=== PATIENT | female | born 1985 | race Caucasian/White ===

== ENCOUNTER → 2017-09-09 15:54 | Outpatient (CLI) | payer OTHER, SELFPAY ==
[2017-09-09 17:29] LABS: Absolute Lymphocyte Count 1.61 X10^3/ul (0.83-4.51); Absolute Neutrophil Count 5.2 X10^3/uL (2.0-7.7); Basophil# 0.01 X10^3/uL; Basophil% 0.1 % (0-1); Eosinophil# 0.19 X10^3/uL; Eosinophils% 2.5 % (0-5); Hematocrit 38.3 % (37-47); Hemoglobin 12.7 g/dl (12.0-15.0); Lymphocyte # 1.61 X10^3/ul (4.0); Lymphocyte % 21.1 % (19-41); Mean Corp Hgb Conc 33.2 g/gl (32-36); Mean Corpuscular Hgb 27.3 pg (27.0-32.0); Mean Corpuscular Volume 82.2 fL (81-99); Monocyte# 0.57 X10^3/uL; Monocyte% 7.5 % (0-10); Neutrophil # 5.24 X10^3/uL (2.7-7.7); Neutrophil % 68.5 % (47-70); Platelet Count 210 K/mm3 (150-450); RBC Distribution Width CV 13.7 % (11.6-14.6); RBC Distribution Width SD 40.3 fl (35.1-43.9); Red Blood Count 4.66 M/mm3 (4.2-5.4); White Blood Count 7.6 K/mm3 (4.4-11.0)
[2017-09-09 17:44] LABS: POSITIVE COUNT NO; POSITIVE DIFFERENTIAL NO; POSITIVE MORPHOLOGY NO
[2017-09-09 19:01] LABS: HIV - WCH Non-Reactive (Nonreactive); Rubella IgG 46.6 IU/mL
[2017-09-11 11:19] LABS: HEPATITIS B SURFACE AG Negative (Negative)
[2017-09-13 03:10] LABS: Rapid Plasmin Reagin (RPR) NONREACTIVE (NONREACTIVE)
== END ==
PROVIDERS: Family Provider Family Medicine; PCP Family Medicine; Visit Provider Obstetrics & Gynecology
DX: Z34.81 Encounter for supervision of other normal pregnancy, first trimester (principal)
CPT/HCPCS: 85025; 86592; 86703; 86762; 86850; 86900; 87086; 87340

== ENCOUNTER → 2017-09-09 18:12 | Outpatient (CLI) | payer OTHER, SELFPAY ==
[2017-09-09 22:25] LABS: Chlamydia Trachomatis by PCR Negative (Negative); Neisserai gonorrhoeae by PCR Negative (Negative); Probe Check PASS; Sample Adequacy Control PASS; Specimen Processing Control PASS
== END ==
PROVIDERS: Family Provider Family Medicine; PCP Family Medicine; Visit Provider Obstetrics & Gynecology
DX: Z34.81 Encounter for supervision of other normal pregnancy, first trimester (principal)
CPT/HCPCS: 87086; 87491; 87591

== ENCOUNTER → 2017-12-02 08:05 | Outpatient (CLI) | payer OTHER, SELFPAY ==
--- NOTE | 2017-12-02 08:05 | DT_ITS ---
This patient was seen during an EMR downtime November 25, 2017 - December 02, 2017. This patient may have a combination of paper and electronic documentation or all paper documentation. All documentation is viewable within the e-chart portion of [employer] for each patient visit.
--- NOTE | 2017-12-02 08:12 | US_ITS ---
STUDY: SECOND AND THIRD TRIMESTER OBSTETRICAL ULTRASOUND REASON FOR EXAM: Female, 32 years old. , assessment LMP: July 18, 2017 TECHNIQUE: Transabdominal imaging of the pelvis was performed using real-time ultrasound. PRIOR ULTRASOUND: None. FINDINGS: There is a single intrauterine fetus. The fetus is in a variable presentation. There is demonstrated cardiac activity with a heart rate of 155 bpm. There is a normal amniotic fluid volume. The placenta is anterior in location and is not low lying. There are Grade 0 placental changes. The cervix measures 4.9 cm in length. The bilateral adnexal regions show no significant abnormalities. BIOMETRY: BPD: 4.83 cm: 20 weeks, 5 days HC: 17.41 cm: 20 weeks, 0 days AC: 14.68 cm: 20 weeks, 0 days FL: 3.02 cm: 19 weeks, 3 days CI: 83% FL/BPD: 63% FL/HC: FL/AC: 21% HC/AC: 1.19 age by current US: 20 weeks, 1 days. MORGAN by current US: April 20, 2018. Estimated weight: 310 grams, +/- 45 grams, 55 %. age by prior US: weeks, days. MORGAN by prior US: . Age by LMP: 19 weeks, 4 days. MORGAN by LMP: April 24, 2018. ANATOMY: Gender: Male Cranium: Normal lateral ventricles. Normal choroid plexus. Normal cerebellum. Normal cisterna magna. Normal face, nose and lips. Chest: Normal 4-chamber heart. Abdomen/Pelvis: Normal diaphragm. Normal stomach. Normal abdominal wall. Normal cord insertion. Normal 3 vessel cord. The renal pelves measure 3.8 mm and 3.2 mm. Normal bladder. Spine: Normal cervical spine. Normal thoracic spine. Normal lumbar spine. Extremities: Normal bilateral upper extremities. Normal bilateral lower extremities. US/OB Anatomy Scan IMPRESSION: There is a viable intrauterine with estimated gestational age of 20 weeks 1 day by the current ultrasound. Measurements are given above. The renal pelves are prominent but not hydronephrotic. These can be reassessed on a follow-up study. Electronically Signed: Dee Lobato MD at 21:40 EDT Tel Direct: [phone], Service support ,
== END ==
PROVIDERS: Family Provider Family Medicine; PCP Family Medicine; Visit Provider Obstetrics & Gynecology
DX: Z36.89 Encounter for other specified antenatal screening (principal)
CPT/HCPCS: 76805

== ENCOUNTER → 2018-01-17 09:03 | Outpatient (CLI) | payer OTHER, SELFPAY ==
--- NOTE | 2018-01-17 09:07 | US_ITS ---
STUDY: SECOND AND THIRD TRIMESTER OBSTETRICAL ULTRASOUND - LIMITED REASON FOR EXAM: Female, 32 years old. Follow-up anatomy. LMP: 07/18/2017 PRIOR ULTRASOUND: 12/02/2017 TECHNIQUE: Transabdominal ultrasound evaluation was performed. FINDINGS: There is a single intrauterine fetus. The fetus is in a cephalic presentation. There is demonstrated cardiac activity with a heart rate of 139 bpm. There is a normal amniotic fluid volume. The largest amniotic fluid pocket measures 7.8 x 5.2 cm. The placenta is anterior in location and is not low lying. There are Grade 0 placental changes. The cervix measures 3.3 cm in length. BIOMETRY: BPD: 6.88 cm: 27 weeks, 5 days HC: 25.35 cm: 27 weeks, 4 days AC: 23.16 cm: 27 weeks, 4 days FL: 4.80 cm: 26 weeks, 1 days Age by LMP: 26 weeks, 1 days. MORGAN by LMP: 04/24/2018. age by prior US: 26 weeks, 5 days. MORGAN by prior US: 04/20/2018. age by current US: 27 weeks, 2 days. MORGAN by current US: 04/16/2018. Estimated weight: 1017 grams, +/- 148 grams, 76 percentile. Both renal pelves remain dilated, right measures 4 mm, left 5 mm, both still within normal range, no hydronephrosis noted. US/OB Limited With Biometrics IMPRESSION: Single live intrauterine at 27 weeks, 2 days by ultrasound with MORGAN of 04/16/2018. Heart rate of 139 bpm. Subtle renal pelvis dilatation still noted, both measurements still within normal range. Normal growth noted since the previous study. Electronically Signed: Desmond Leija MD at 11:56 EDT , Service support ,
== END ==
PROVIDERS: Family Provider Family Medicine; PCP Family Medicine; Visit Provider Obstetrics & Gynecology
DX: O28.9 Unspecified abnormal findings on antenatal screening of mother (principal); Z3A.00 Weeks of gestation of pregnancy not specified
CPT/HCPCS: 76816

== ENCOUNTER → 2018-01-30 17:06 | Outpatient (CLI) | payer OTHER, SELFPAY ==
[2018-01-30 17:58] LABS: Absolute Lymphocyte Count 1.84 X10^3/ul (0.83-4.51); Absolute Neutrophil Count 6.7 X10^3/uL (2.0-7.7); Basophil# 0.02 X10^3/uL; Basophil% 0.2 % (0-1); Eosinophil# 0.35 X10^3/uL; Eosinophils% 3.6 % (0-5); Hematocrit 33.8 % (37-47); Hemoglobin 10.8 g/dl (12.0-15.0); Lymphocyte # 1.84 X10^3/ul (4.0); Mean Corpuscular Hgb 26.6 pg (27.0-32.0); Mean Corpuscular Volume 83.3 fL (81-99); Mean Platelet Vol. 11.3 fl (6.2-12.0); Monocyte# 0.67 X10^3/uL; Monocyte% 6.9 % (0-10); Neutrophil # 6.69 X10^3/uL (2.7-7.7); Neutrophil % 69.3 % (47-70); Platelet Count 170 K/mm3 (150-450); RBC Distribution Width CV 13.4 % (11.6-14.6); RBC Distribution Width SD 40.9 fl (35.1-43.9); Red Blood Count 4.06 M/mm3 (4.2-5.4); White Blood Count 9.7 K/mm3 (4.4-11.0)
[2018-01-30 18:03] LABS: POSITIVE COUNT NO; POSITIVE DIFFERENTIAL NO; POSITIVE MORPHOLOGY NO
[2018-01-30 18:38] LABS: Glucose Challenge Gest 1H 50g 125 mg/dL (70-140)
== END ==
PROVIDERS: Family Provider Family Medicine; PCP Family Medicine; Visit Provider Obstetrics & Gynecology
DX: Z34.81 Encounter for supervision of other normal pregnancy, first trimester (principal)
CPT/HCPCS: 36415; 82950; 85025

== ENCOUNTER → 2018-03-26 16:04 | Outpatient (CLI) | payer OTHER, SELFPAY ==
[2018-03-26 18:18] LABS: Group B Strep DNA By PCR Negative (Negative); Internal Control PASS; Probe Check PASS; Specimen Processing Control PASS
== END ==
PROVIDERS: Family Provider Family Medicine; PCP Family Medicine; Referring Provider Obstetrics & Gynecology; Visit Provider Obstetrics & Gynecology
DX: Z34.90 Encounter for supervision of normal pregnancy, unspecified, unspecified trimester (principal)
CPT/HCPCS: 87081; 87653

== ENCOUNTER → 2018-04-17 08:52 | Outpatient (CLI) | payer OTHER, SELFPAY ==
[2018-04-17 10:31] LABS: T4 Free Direct 0.97 ng/dL (0.76-1.46); Thyroid Stim Hormone (TSH) 1.98 uIU/mL (0.358-3.74)
== END ==
PROVIDERS: Referring Provider Obstetrics & Gynecology; Visit Provider Obstetrics & Gynecology
DX: E01.0 Iodine-deficiency related diffuse (endemic) goiter (principal)
CPT/HCPCS: 36415; 84439; 84443

== ENCOUNTER → 2018-04-24 14:14 | Outpatient (CLI) | payer OTHER, SELFPAY ==
--- NOTE | 2018-04-24 14:18 | US_ITS ---
STUDY: THYROID ULTRASOUND REASON FOR EXAM: Female, 32 years old. Follow-up nodules TECHNIQUE: Ultrasound evaluation of the thyroid was performed with real-time and static ambrose-scale imaging. COMPARISON: 02/21/2017. FINDINGS: RIGHT LOBE: The right lobe of the thyroid gland measures 5.1 x 2.0 x 1.8 cm. There is a homogeneous echotexture. 2 small nodules again seen, low echogenicity to cystic, and measuring 0.5 and 0.8 mm. LEFT LOBE: The left lobe of the thyroid gland measures 4.8 x 1.8 x 1.2 cm. There is a homogeneous echotexture. There are no demonstrated solid, cystic or complex lesions. ISTHMUS: The isthmus measures 2 mm . The regional lymph nodes are normal. US/Thyroid IMPRESSION: Small cystic subcentimeter nodules on the left which do not need further evaluation, and no other abnormalities found. Electronically Signed: Brandon Horne MD at 15:52 EDT , Service support ,
== END ==
PROVIDERS: Family Provider Family Medicine; PCP Family Medicine; Referring Provider Obstetrics & Gynecology; Visit Provider Obstetrics & Gynecology
DX: E01.0 Iodine-deficiency related diffuse (endemic) goiter (principal)
CPT/HCPCS: 76536

== ENCOUNTER 2018-04-30 07:00 | Inpatient (IN) | payer OTHER, SELFPAY ==
[2018-04-30] MEDS: Lactated Ringers 1,000 ML 50 ML IV ×3 (07:40→16:21)
[2018-04-30 07:45] VITALS: BMI 30.4
[2018-04-30 07:54] LABS: Hematocrit 32.3 % (37-47); Hemoglobin 9.9 g/dl (12.0-15.0); Mean Corp Hgb Conc 30.7 g/gl (32-36); Mean Corpuscular Hgb 23.7 pg (27.0-32.0); Mean Corpuscular Volume 77.3 fL (81-99); Mean Platelet Vol. 11.5 fl (6.2-12.0); Platelet Count 203 K/mm3 (150-450); RBC Distribution Width CV 14.3 % (11.6-14.6); RBC Distribution Width SD 40.5 fl (35.1-43.9); Red Blood Count 4.18 M/mm3 (4.2-5.4); White Blood Count 10.6 K/mm3 (4.4-11.0)
[2018-04-30 08:01] LABS: Scan Indicated on CBC? Y/N NO
[2018-04-30] MEDS: Oxytocin 30 units/NS 500 ml 30 UNITS/500 ML IV.SOLN IV (08:31)
[2018-04-30] MEDS: fentaNYL-bupivacaine (epidural) 100 ML BAG EPIDURAL (13:45)
[2018-04-30] MEDS: Oxytocin 30 units/NS 500 ml 30 UNITS/500 ML IV.SOLN 334 UNITS IV (17:10)
--- NOTE | 2018-04-30 17:33 | PCM.HP.OB ---
- Problem List (1) Normal in multigravida in third trimester Status: Acute Comment: PRR MORGAN 04/24/18 boy Luis F Hilario shyam Robert (2) Ventriculomegaly of brain on ultrasound Status: Acute Comment: Weekly BPP following with MFM. plan neurology after . send placenta at delivery. (3) Status: Acute Qualifiers: Comment: nipt normal. NTD screening declined. anatomy scan reviewed. Antepartum testing- no operative vaginal delivery. (4) Abnormal findings on screening Status: Acute Comment: upper limits of normal kidney size, repeat normal with MFM, but ventriculomegaly present (5) Normal in multigravida in first trimester Status: Acute History Date of Admission: 04/30/18 Final MORGAN: 04/24/18 Final MORGAN Source: US <20 weeks Gestational age: 40 Weeks and 6 Days History of this : This is a 32 year-old, at 40 weeks gestational age presents IOL postdates. she denies any vb lof admits good fm has had a complicated by ventriculomegaly and pyelectasis. She previously had polyhydramnios that has resolved the last 2 weeks. She is been followed with [facility] in addition to routine care. Medical History: Medical History (Last Reviewed 04/29/18 @ 16:28 by Belkis Mendez) H/O wisdom tooth extraction K08.409 Surgical History: Surgical History (Last Reviewed 04/29/18 @ 16:28 by Belkis Mendez) H/O dilation and curettage Z98.890 Allergies No Known Allergies Allergy (Verified 04/29/18 16:29) Home Medications: Home Medications Vits [Prenatabs FA ] 1 tab PO DAILY 01/03/14 Smoking Status: Never smoker Alcohol: None Number of Fetus(es): 1 Heart Tracins moderate variability reactive no decelerations category 1 tracing TOCO Analysis: No regular contractions History Past Pregnancies: Past Pregnancies 2 previous term uncomplicated vaginal deliveries weighing 8 pounds Labs: Mom's Labs & Results 04/30/18 04/30/18 07:40 07:40 WBC 10.6 RBC 4.18 L Hgb 9.9 L Hct 32.3 L MCV 77.3 L MCH 23.7 L MCHC 30.7 L RDW 14.3 RDW Differential 40.5 Plt Count 203 MPV 11.5 Blood Type A POSITIVE Antibody Screen NEGATIVE Course Did the patient receive Yes care? Labs Blood Type: A RH: POSITIVE RPR/VDRL/Syphilis Nonreactive Rubella status Immune HbSAg Negative Date Done: 09/09/17 Chlamydia Negative Gonorrhea Negative HIV/AIDS Non-Reactive Group B Strep: Negative Current Obstetrical History Gestational Diabetes No Incompetent Cervix No Infertility No IUGR No Macrosomia No Hypertension/Pre-eclampsia No Placenta Previa/Abruption No PTL/PROM No Uterine anomaly No Oligohydramnios No Polyhydramnios No Multiple gestation No Past Medical History Asthma No Diabetes No Hypertension No Heart disease No Mitral valve prolapse No Neurologic/Seizure disorder/ No Migraines Kidney disease No Liver disease No Varicosities No Clotting disorders/Hx of DVT No Thyroid Dysfunction No Other medical diseases No Psychiatric disorders No Major trauma No Abnormal PAP smear No Sleep apnea No Mammogram in the last 2 years No Social History Marital Status: Alleged father ROBERT Hx Smoking No Smoking Status Never smoker How long have you used NA substances (years)? Expected Infant Delivery Method: Spontaneous Vaginal Review of Systems Constitutional: Denies: Fever, Malaise Eyes: Denies: Blurred vision, Vision Change HEENT: Denies: Head Aches, Visual Changes Cardiovascular: Denies: Chest Pain, Palpitations Respiratory: Denies: Cough, Shortness of Breath, Wheezing Gastrointestinal: Denies: Abdominal Pain, Diarrhea, Nausea, Vomiting Genitourinary: Denies: Dysuria, Hematuria Musculoskeletal: Denies: Joint Pain, Muscle pain Skin: Denies: Lesions, Rash Neurological: Denies: Blurred vision, Focal weakness, Headaches Psychiatric: Denies: Anxiety, Depression Endocrine: Denies: Heat/ Cold Intolerance Hematologic/ Lymphatic: Denies: Easy Bruising, Easy Bleeding Physical Exam General: Alert, Cooperative, No apparent distress HEENT: Atraumatic, Normocephalic. Negative for: Thyromegaly, Lymphadenopathy Cardiovascular: Regular rate Lungs: Normal air movement Abdomen: Soft, Non Tender, Gravid Neurological: Deep Tendon Reflexes 2+/4 and Symmetrical, Neuro grossly intact. 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 Negative for: Vulvar lesions Estimated gestational size: Appropriate for gestational size Presentation: Cephalic Cervix Dilation (cm): 3 Assessment/Plan All Active Problems (Last Reviewed 04/29/18 @ 16:28 by Belkis Mendez) Normal in multigravida in third trimester (Acute) Ventriculomegaly of brain on ultrasound (Acute) (Acute) Abnormal findings on screening (Acute) Normal in multigravida in first trimester (Acute) Ectopic (Resolved) This is a 32 year-old, at 40w 6dweeks gestational age presents for IOL postdates Patient presents IOL, plan expectant management for , pitocin/AROM . Pain management: plans epidural GBS neg Management of any complications: ventriculomegaly I have reviewed the [facility] and made any clinically relevant updates.
--- NOTE | 2018-04-30 17:37 | HP.PCM_ITS ---
- Problem List (1) Normal in multigravida in third trimester Status: Acute Comment: PRR MORGAN 04/24/18 boy Luis F Hilario shyam Robert (2) Ventriculomegaly of brain on ultrasound Status: Acute Comment: Weekly BPP following with MFM. plan neurology after . send placenta at delivery. (3) Status: Acute Qualifiers: Comment: nipt normal. NTD screening declined. anatomy scan reviewed. Antepartum testing- no operative vaginal delivery. (4) Abnormal findings on screening Status: Acute Comment: upper limits of normal kidney size, repeat normal with MFM, but ventriculomegaly present (5) Normal in multigravida in first trimester Status: Acute History Date of Admission: 04/30/18 Final MORGAN: 04/24/18 Final MORGAN Source: US <20 weeks Gestational age: 40 Weeks and 6 Days History of this : This is a 32 year-old, at 40 weeks gestational age presents IOL postdates. she denies any vb lof admits good fm has had a complicated by ventriculomegaly and pyelectasis. She previously had polyhydramnios that has resolved the last 2 weeks. She is been followed with [facility] in addition to routine care. Medical History: Medical History (Last Reviewed 04/29/18 @ 16:28 by Belkis Mendez) H/O wisdom tooth extraction K08.409 Surgical History: Surgical History (Last Reviewed 04/29/18 @ 16:28 by Belkis Mendez) H/O dilation and curettage Z98.890 Allergies No Known Allergies Allergy (Verified 04/29/18 16:29) Home Medications: Home Medications Vits [Prenatabs FA ] 1 tab PO DAILY 01/03/14 Smoking Status: Never smoker Alcohol: None Number of Fetus(es): 1 Heart Tracins moderate variability reactive no decelerations category 1 tracing TOCO Analysis: No regular contractions History Past Pregnancies: Past Pregnancies 2 previous term uncomplicated vaginal deliveries weighing 8 pounds Labs: Mom's Labs & Results 04/30/18 04/30/18 07:40 07:40 WBC 10.6 RBC 4.18 L Hgb 9.9 L Hct 32.3 L MCV 77.3 L MCH 23.7 L MCHC 30.7 L RDW 14.3 RDW Differential 40.5 Plt Count 203 MPV 11.5 Blood Type A POSITIVE Antibody Screen NEGATIVE Course Did the patient receive Yes care? Labs Blood Type: A RH: POSITIVE RPR/VDRL/Syphilis Nonreactive Rubella status Immune HbSAg Negative Date Done: 09/09/17 Chlamydia Negative Gonorrhea Negative HIV/AIDS Non-Reactive Group B Strep: Negative Current Obstetrical History Gestational Diabetes No Incompetent Cervix No Infertility No IUGR No Macrosomia No Hypertension/Pre-eclampsia No Placenta Previa/Abruption No PTL/PROM No Uterine anomaly No Oligohydramnios No Polyhydramnios No Multiple gestation No Past Medical History Asthma No Diabetes No Hypertension No Heart disease No Mitral valve prolapse No Neurologic/Seizure disorder/ No Migraines Kidney disease No Liver disease No Varicosities No Clotting disorders/Hx of DVT No Thyroid Dysfunction No Other medical diseases No Psychiatric disorders No Major trauma No Abnormal PAP smear No Sleep apnea No Mammogram in the last 2 years No Social History Marital Status: Alleged father ROBERT Hx Smoking No Smoking Status Never smoker How long have you used NA substances (years)? Expected Infant Delivery Method: Spontaneous Vaginal Review of Systems Constitutional: Denies: Fever, Malaise Eyes: Denies: Blurred vision, Vision Change HEENT: Denies: Head Aches, Visual Changes Cardiovascular: Denies: Chest Pain, Palpitations Respiratory: Denies: Cough, Shortness of Breath, Wheezing Gastrointestinal: Denies: Abdominal Pain, Diarrhea, Nausea, Vomiting Genitourinary: Denies: Dysuria, Hematuria Musculoskeletal: Denies: Joint Pain, Muscle pain Skin: Denies: Lesions, Rash Neurological: Denies: Blurred vision, Focal weakness, Headaches Psychiatric: Denies: Anxiety, Depression Endocrine: Denies: Heat/ Cold Intolerance Hematologic/ Lymphatic: Denies: Easy Bruising, Easy Bleeding Physical Exam General: Alert, Cooperative, No apparent distress HEENT: Atraumatic, Normocephalic. Negative for: Thyromegaly, Lymphadenopathy Cardiovascular: Regular rate Lungs: Normal air movement Abdomen: Soft, Non Tender, Gravid Neurological: Deep Tendon Reflexes 2+/4 and Symmetrical, Neuro grossly intact. 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 Negative for: Vulvar lesions Estimated gestational size: Appropriate for gestational size Presentation: Cephalic Cervix Dilation (cm): 3 Assessment/Plan All Active Problems (Last Reviewed 04/29/18 @ 16:28 by Belkis Mendez) Normal in multigravida in third trimester (Acute) Ventriculomegaly of brain on ultrasound (Acute) (Acute) Abnormal findings on screening (Acute) Normal in multigravida in first trimester (Acute) Ectopic (Resolved) This is a 32 year-old, at 40w 6dweeks gestational age presents for IOL postdates Patient presents IOL, plan expectant management for , pitocin/AROM . Pain management: plans epidural GBS neg Management of any complications: ventriculomegaly I have reviewed the [facility] and made any clinically relevant updates.
--- NOTE | 2018-04-30 17:39 | PCM.OB.VAG ---
- Problem List (1) Normal in multigravida in third trimester Status: Acute Comment: PRR MORGAN 04/24/18 boy Luis F Hilario shyam Robert (2) Ventriculomegaly of brain on ultrasound Status: Acute Comment: Weekly BPP following with MFM. plan neurology after . send placenta at delivery. (3) Status: Acute Qualifiers: Comment: nipt normal. NTD screening declined. anatomy scan reviewed. Antepartum testing- no operative vaginal delivery. (4) Abnormal findings on screening Status: Acute Comment: upper limits of normal kidney size, repeat normal with MFM, but ventriculomegaly present (5) Normal in multigravida in first trimester Status: Acute Vaginal Delivery Maternal Presentation: Medically Indicated Induction 32-year-old at 40 weeks 6 days presents for induction of labor secondary to postdates Method of Induction: Pitocin Medical Reason for Induction: Post term Amniotic Membrane Rupture Type: Artificial Amniotic Fluid Description: Clear Final MORGAN: 04/24/18 Gestational age: 40 Weeks and 6 Days Date of Procedure: 04/30/18 Pre-Operative Diagnosis: Induction of labor postdates Post-Operative Diagnosis: Same Surgery/ Procedure Performed: Spontaneous Vaginal Delivery Type of Anesthesia: Epidural Description of Procedure: Patient began pushing and delivered the head in the ASIM presentation. The head was delivered atraumatically . The anterior and posterior shoulders delivered without complication followed by the rest of the and the was placed on the maternal abdomen. Delayed cord clamping was employed for approximately 60 seconds. Cord was clamped and cut and gentle traction was applied to the cord and the placenta delivered spontaneously immediately following it was noted to be intact with three-vessel cord. The perineum and vagina were inspected and noted to have a small perineal second degree laceration was repaired in the usual fashion with 3-0 Vicryl repeat. EBL was 100 cc. Patient and infant tolerated delivery well. Presentation: ASIM Placental Delivery Description: Spontaneous Placenta Disposition: [facility] Cord Vessel Description: 3 Vessels Cord Entanglement: None Estimated Blood Loss: 100 Infant A gender: Male Episiotomy Description: None Laceration: Perineal Extension/lac, 2nd degree Medications given after delivery: IV Pitocin
[2018-04-30] MEDS: Oxytocin 30 units/NS 500 ml 30 UNITS/500 ML IV.SOLN 167 UNITS IV (17:40)
[2018-04-30 19:51] VITALS: BP 119/77; PULSE 101; RESP 16; TEMP 37.5
[2018-04-30] MEDS: Naproxen 250 MG Tablet PO (21:03)
[2018-05-01 00:15] VITALS: BP 97/59; PULSE 71; RESP 16; TEMP 37
[2018-05-01 04:00] VITALS: BP 102/63; PULSE 78; RESP 18; TEMP 36.5
[2018-05-01] MEDS: Naproxen 250 MG Tablet PO ×2 (06:54→15:16)
--- NOTE | 2018-05-01 06:58 | PCM.PN.OB ---
Subjective: DOING WELL NO COMPLAINTS - Physical Exam General: Alert, Oriented x3 Vital Signs Temp Pulse Resp BP 97.7 F L 78 18 102/63 05/01/18 04:00 05/01/18 04:00 05/01/18 04:00 05/01/18 04:00 Oxygen Delivery Method Room Air Weight: 171 lb 15.369 oz Body Mass Index (BMI) 30.4 Intake and Output for Last 24 Hours 04/29/18 04/30/18 05/01/18 23:59 23:59 23:59 Intake Total 2766 / 2766 Output Total 900 / 900 300 / 300 Balance 1866 / 1866 -300 / -300 Laboratory Tests Past 24 Hrs 04/30/18 04/30/18 07:40 07:40 WBC 10.6 RBC 4.18 L Hgb 9.9 L Hct 32.3 L MCV 77.3 L MCH 23.7 L MCHC 30.7 L RDW 14.3 RDW Differential 40.5 Plt Count 203 MPV 11.5 Blood Type A POSITIVE Antibody Screen NEGATIVE Medical Necessity - Tobacco Use Smoking Status: Never smoker Assessment/Plan All Active Problems (Last Reviewed 04/29/18 @ 16:28 by Belkis Mendez) Normal in multigravida in third trimester (Acute) Ventriculomegaly of brain on ultrasound (Acute) (Acute) Abnormal findings on screening (Acute) Normal in multigravida in first trimester (Acute) Ectopic (Resolved) s/p PPD # 1 1. routine post delivery care 2. breast feeding- support given 3. rh positive 4. rubella immune
--- NOTE | 2018-05-01 06:59 | PCM.DCVAG ---
Discharge Diet: No Restrictions Discharge Activity: Return to Normal Activity, May not drive while taking narcotic pain medications., May Shower May resume sexual activity in: 4-6 weeks Call your doctor if your incision/area has: Continuous Slow Oozing, Sudden Increased Bleeding, Increased Pain/ Swelling, Increased Redness, Foul Smelling Discharge Additional Instructions: If you experience any of the following, contact your healthcare provider. Bleeding that soaks a pad every hour for 2 hours Fever 100.4 or higher Unrelieved incision or abdominal pain Swelling, redness, discharge or bleeding from your incision or episiotomy site Your incision begins to separate Problems urinating (including inability to urinate or burning while urinating). Visual changes Severe headache Flu-like symptoms Pain or redness in one of both of your breasts Pain, warmth, tenderness or swelling in your legs, especially the calf area Frequent nausea and vomiting Symptoms of depression or anxiety If you experience any of the following, call 911 or go to the nearest Emergency Room. Chest pain Problems breathing Seizure activity Partial or complete paralysis of a body part, slurred speech, weakness or drooping of the face, or a sudden inability to walk or hold your balance Allergies/Adverse Reactions: Allergies No Known Allergies Allergy (Verified 04/29/18 16:29) Medications to take at Discharge Vits [Prenatabs FA ] 1 tab PO DAILY 01/03/14 Please Follow Up With: Breanne Jones MD - [phone] When: Call to make an appointment with your doctor in 6 weeks. If you had elevated Blood pressure or 4th degree laceration you will need to be seen in 2 weeks. Primary Care Physician: Delio Allen MD [Primary Care Provider] - Test Results: Test results from this visit will be discussed in further detail at your follow-up appointment, if applicable.
--- NOTE | 2018-05-01 07:00 | DCINST_ITS ---
Discharge Diet: No Restrictions Discharge Activity: Return to Normal Activity, May not drive while taking narcotic pain medications., May Shower May resume sexual activity in: 4-6 weeks Call your doctor if your incision/area has: Continuous Slow Oozing, Sudden Increased Bleeding, Increased Pain/ Swelling, Increased Redness, Foul Smelling Discharge Additional Instructions: If you experience any of the following, contact your healthcare provider. * Bleeding that soaks a pad every hour for 2 hours * Fever 100.4 or higher * Unrelieved incision or abdominal pain * Swelling, redness, discharge or bleeding from your incision or episiotomy site * Your incision begins to separate * Problems urinating (including inability to urinate or burning while urinating). * Visual changes * Severe headache * Flu-like symptoms * Pain or redness in one of both of your breasts * Pain, warmth, tenderness or swelling in your legs, especially the calf area * Frequent nausea and vomiting * Symptoms of depression or anxiety If you experience any of the following, call 911 or go to the nearest Emergency Room. * Chest pain * Problems breathing * Seizure activity * Partial or complete paralysis of a body part, slurred speech, weakness or drooping of the face, or a sudden inability to walk or hold your balance Allergies/Adverse Reactions: Allergies No Known Allergies Allergy (Verified 04/29/18 16:29) Medications to take at Discharge Vits [Prenatabs FA ] 1 tab PO DAILY 01/03/14 Please Follow Up With: Breanne Jones MD - [phone] When: Call to make an appointment with your doctor in 6 weeks. If you had elevated Blood pressure or 4th degree laceration you will need to be seen in 2 weeks. Primary Care Physician: Delio Allen MD [Primary Care Provider] - Test Results: Test results from this visit will be discussed in further detail at your follow- up appointment, if applicable.
[2018-05-01 09:21] VITALS: BP 111/85; PULSE 93; RESP 16; TEMP 36.8
[2018-05-01 12:19] VITALS: BP 107/76; PULSE 97; RESP 16; TEMP 36.6
[2018-05-01 16:00] VITALS: BP 106/71; PULSE 88; RESP 18; TEMP 37
--- NOTE | 2018-05-06 19:24 | NURSING ---
follow up call complete and denies needs, questions, or problems . satisfied with her care
== END 2018-05-01 19:30 | disposition home or self-care (01) | DRG 807 ==
PROVIDERS: Admitting Provider Obstetrics & Gynecology; Family Provider Family Medicine; PCP Family Medicine; Referring Provider Obstetrics & Gynecology; Visit Provider Obstetrics & Gynecology
DX: O48.0 Post-term pregnancy (principal); Z37.0 Single live birth; O70.1 Second degree perineal laceration during delivery; Z3A.40 40 weeks gestation of pregnancy
CPT/HCPCS: 59025; 59050; 85027; 86850; 86900; 88233; 88262; 88291; 88307; 88381; 99218; J7120; A4216; G0378

== ENCOUNTER → 2021-01-31 14:03 | Outpatient (CLI) | payer OTHER, SELFPAY ==
[2021-01-31 13:28] VITALS: BMI 30.4
[2021-02-03 22:13] LABS: HPV APTIMA, High Risk Negative (Negative)
== END ==
PROVIDERS: PCP Family Medicine; Visit Provider Nurse Practitioner Women's Health
DX: Z12.4 Encounter for screening for malignant neoplasm of cervix (principal)
CPT/HCPCS: 87624; 88175; G0145

== ENCOUNTER 2021-05-07 15:36 | Emergency (ER) | payer OTHER, SELFPAY ==
[2021-05-07 15:37] VITALS: BP 118/93; PULSE 107; RESP 22; TEMP 36.3; O2SAT 100; BMI 25.5
--- NOTE | 2021-05-07 15:47 | CT_ITS ---
STUDY: CT BRAIN WITHOUT CONTRAST REASON FOR EXAM: Female, 35 years old. seizure RADIATION DOSAGE (If Supplied By Facility): CTDIvol = ( 44.99 ) mGy, DLP = ( 745.49 ) mGycm TECHNIQUE: Transaxial CT imaging of the brain was performed without administration of intravenous contrast material. Individualized dose optimization techniques were used for this CT. COMPARISON: No relevant priors. FINDINGS: There is no intra-/extra-axial fluid collection, mass effect, or midline shift. The ambrose/white matter junction is preserved. The basal cisterns are patent. Visualized paranasal sinuses and mastoid air cells are clear. The calvarium is intact. CT/Brain/Head without Contrast IMPRESSION: No acute intracranial finding. MRI may be obtained if clinically indicated. Electronically Signed: Aung Peterson MD at 16:46 EST Tel , Service support ,
[2021-05-07 15:55] LABS: Absolute Lymphocyte Count 1.32 X10^3/uL (0.83-4.51); Absolute Neutrophil Count 7.4 X10^3/uL (2.0-7.7); Basophil# 0.03 X10^3/uL; Basophil% 0.3 % (0-1); Eosinophil# 0.04 X10^3/uL; Eosinophils% 0.4 % (0-5); Hematocrit 39.6 % (37-47); Hemoglobin 12.9 g/dL (12.0-15.0); Lymphocyte # 1.32 X10^3/ul (0.83-4.51); Lymphocyte % 14.3 % (19-41); Mean Corp Hgb Conc 32.6 g/dL (32-36); Mean Corpuscular Hgb 26.6 pg (27.0-32.0); Mean Corpuscular Volume 81.6 fL (81-99); Monocyte# 0.39 X10^3/uL; Monocyte% 4.2 % (0-10); NRBC Flagged by Analyzer 0 % (0-5); Neutrophil # 7.37 X10^3/uL (2.7-7.7); Neutrophil % 80.1 % (47-70); Platelet Count 274 K/mm3 (150-450); RBC Distribution Width CV 12.5 % (11.6-14.6); RBC Distribution Width SD 36.8 fl (35.1-43.9); Red Blood Count 4.85 M/mm3 (4.2-5.4); White Blood Count 9.2 K/mm3 (4.4-11.0)
[2021-05-07] MEDS: Ondansetron 4 MG/2 ML Vial IV ×2 (15:58→16:49)
--- NOTE | 2021-05-07 16:00 | EKG12_ITS ---
Test Reason : SYNCOPE Blood Pressure : / mmHG Vent. Rate : 105 BPM Atrial Rate : 105 BPM P-R Int : 138 ms QRS Dur : 092 ms QT Int : 362 ms P-R-T Axes : 073 068 -88 degrees QTc Int : [address] & T wave abnormality, consider anterolateral ischemia Abnormal ECG Confirmed by SILVIO HILARIO, NORBERT ([id number]), online editor JOSEF PORTER ([id number]) on 05/08/2021 11:07:05 AM Referred By: DAYLIN Confirmed By:NORBERT ANGUIANO MD
[2021-05-07 16:04] LABS: Anion Gap 8 (5-15); BUN 15 mg/dL (7-18); BUN/Creat Ratio 19.5 RATIO (10-20); Chloride 106 mmol/L (98-107); Creatinine, Serum 0.77 mg/dL (0.55-1.02); EST Glomerular Filtration Rate 91 mL/min (>60); Est Glom Filt Rate - Afr Amer 111 mL/min (>60); Estimated Creatinine Clearance 85.96 ml/min; Glucose 126 mg/dL (74-106); Potassium 3.2 mmol/L (3.5-5.1); Sodium Level 138 mmol/L (136-145)
--- NOTE | 2021-05-07 16:07 | EDS_ITS ---
HPI History of Present Illness Chief Complaint: Seizure Detail of Chief Complaint: Nausea and vomiting with myoclonic jerks Informant: patient and spouse/S.O. Onset/Context/Timing Onset: Today Context: Sudden Onset Timing: Intermittent Current Severity: Mild Maximum Severity: Moderate Narrative Narrative: 35-year-old female no sniffing past medical or surgical history. Currently on no medication she was doing well earlier in the week she had what she thought was drwe-qjrc-hab-mouth disease from her kids. That is since resolved the fevers have resolved. Today she felt nauseated symptoms get nauseated she passed out after vomiting and then had either a seizure or myoclonic jerking. She has had this happen before. She is never been diagnosed with seizures. One of the times when she passed out today after throwing up she fell and hit her head. states he does not think she was completely unconscious. She did not bite her tongue. Prior similar symptoms: Yes Recent Illness/Hospitalization: No PFSH PFSH Medical History Seizure Home Medications multivitamin 1 tab PO DAILY 01/31/21 [History Last Taken Unknown] ondansetron 4 mg PO Q6H PRN #7 tab 05/07/21 [Rx Last Taken Unknown] Allergy/AdvReac Type Severity Reaction Status Date / Time No Known Allergies Allergy Verified 05/07/21 15:37 Surgical History H/O dilation and curettage H/O wisdom tooth extraction Social History Smoking Status: Never smoker alcohol intake: never substance use type: does not use caffeine: Yes what type of physical activity do you participate in: walking seatbelt use: always do you feel safe at home: Yes 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 Review of Systems ROS Unobtainable: Denies due to encephalopathy Constitutional Constitutional ED: Denies chills or fever(s) Eyes Eyes: Denies change in vision ENT ENT ED: Denies ear pain Cardiovascular Cardiovascular: Denies chest pain Respiratory/Chest Respiratory/Chest: Denies dyspnea Gastrointestinal Gastrointestinal: Reports nausea and vomiting; Denies abdominal pain Genitourinary Genitourinary ED: Denies dysuria Musculoskeletal Musculoskeletal: Denies myalgias Integumentary Denies rash Neurologic Neurologic: Denies headache(s) Psychiatric Psychiatric: Denies depression Endocrine Endocrinology: Denies polyuria Allergic/Immunologic Allergic/Immunologic ED: Denies urticaria EXAM Physical Exam Narrative Exam Narrative: 35-year-old female no acute distress vital signs stable afebrile . Does not look septic or toxic. HEENT exam unremarkable. Atraumatic. Pupils round reactive light. Tongue normal no trauma to the tongue. Moist use membranes. No signs of trauma to her head or scalp. Neck nontender no lymphadenopathy no meningismus. Lungs clear to auscultation. Heart regular rhythm rate about 100 no murmur. Chest wall nontender. Abdomen soft nontender. Moving all 4 extremities neurovascularly intact nontender no deformity back nontender. Skin normal. Neurologic exam normal. GCS of 15 Const Vital Signs: 05/07/21 15:37 05/07/21 16:39 05/07/21 16:40 Temperature 97.4 F L Temperature Source Oral Pulse Rate 107 H 64 Respiratory Rate 22 H 12 Blood Pressure 118/93 H 113/84 H Blood Pressure Mean 101 93 Pulse Ox 100 80 100 Oxygen Delivery Method Room Air Room Air Nasal Cannula Oxygen Flow Rate (L/min) 2 05/07/21 17:40 Temperature 97.4 F L Temperature Source Oral Pulse Rate 102 H Respiratory Rate 18 Blood Pressure 110/81 H Blood Pressure Mean 90 Pulse Ox 100 Oxygen Delivery Method Room Air Oxygen Flow Rate (L/min) Positive well nourished and well developed; Negative for obese, cachectic, contractures or unkempt General Appearance ED: well developed and NAD; Negative for unkempt, cachectic, contractures, cyanotic, diaphoretic or pallor Nutritional Appearance: Negative for cachectic or obese HEENT Reports moist mucous membranes Negative for trauma or tenderness Eyes PERRL and EOMs intact bilaterally Neck no lymphadenopathy, supple and no JVD General: Negative for tenderness Chest Wall inspection of chest normal and palpation of chest normal Resp normal respiratory effort and clear to auscultation bilaterally Effort and Inspection: Negative for pain with movement Auscultation: Negative for rales, rhonchi or wheezes Cardio regular rate, regular rhythm, S1 normal heart sound and no murmurs GI normal to inspection, nondistended, normoactive bowel sounds, non-tender, non- distended and no masses Auscultation: normoactive bowel sounds Palpation: soft; Negative for tender or guarding Back/Spine no CVA tenderness General Back: Negative for CVA tenderness Cervical Spine: Negative for cervical spine tenderness Thoracic Spine / Upper Back: Negative for thoracic spinal tenderness or paraspinal muscle tenderness Extremity normal to inspection General Extremety ED: Negative for edema or tenderness General Extremity: Negative for edema Neuro oriented x3, CN's II-XII intact bilaterally and no sensory deficits noted Sensorium / Orientation: alert; Negative for orientation impaired, lethargic or stuporous Motor Exam: strength 5/5 throughout Psych mental status grossly normal Appearance: Negative for unkempt Mood & Affect: Negative for depressed or tearful Skin no rashes or lesions noted and no wounds General Skin Exam: Negative for jaundice or pallor MDM MDM MDM Narrative Medical decision making narrative: 35-year-old female with nausea and vomiting appears that she might have vasovagal episodes when she vomits then had syncope or near syncope and myoclonic jerking. Not convinced at this time this is a true seizure. She has had episodes like this before. We will do screening labs along with IV Zofran and CAT scan of the head. Repeat patient is doing well at 6:20 PM. Symptoms are resolved. She feels condyle being discharged home. Exam is normal. Lab Data Attestation: I reviewed the patient's lab results. Lab results narrative: CBC shows a white count of 9. Hemoglobin of 12.9. Electrolytes show potassium of 3.2 gap of 8 normal BUN and creatinine. Glucose of 126. Labs: Laboratory Results - last 24 hr 05/07/21 05/07/21 15:41 15:41 WBC 9.2 RBC 4.85 Hgb 12.9 Hct 39.6 MCV 81.6 MCH 26.6 L MCHC 32.6 RDW Std Deviation 36.8 RDW Coeff of Stephon 12.5 Plt Count 274 MPV 11.0 Immature Gran % (Auto) 0.700 Neut % (Auto) 80.1 H Lymph % (Auto) 14.3 L Tompkins % (Auto) 4.2 Eos % (Auto) 0.4 Baso % (Auto) 0.3 Absolute Neuts (auto) 7.4 Absolute Lymphs (auto) 1.32 Nucleated RBC % 0 Sodium 138 Potassium 3.2 L Chloride 106 Carbon Dioxide 24.0 Anion Gap 8 BUN 15 Creatinine 0.77 Estim Creat Clear Calc 85.96 Est GFR (MDRD) Af Amer 111 Est GFR (MDRD) Non-Af 91 BUN/Creatinine Ratio 19.5 Glucose 126 H Calcium 9.0 Radiography Diagnostic Testing: Clinical Impression(s) from Imaging Studies Brain CT 05/07/21 15:47 IMPRESSION: No acute intracranial finding. MRI may be obtained if clinically indicated. Electronically Signed: Aung Peterson MD at 16:46 EST Tel , Service support , Rhythm Strip Rhythm Strip: Sinus Tach Rate: 105 Ectopy: None EKG Initial EKG: Attestation: I personally reviewed and interpreted this EKG as follows: Interpretation: No Acute Injury Pattern and Sinus Tachycardia Comments: Sinus tachycardia rate of 105 no acute signs of TN or ischemia. Discharge Plan Triage Chief Complaint: Seizure Other Complaint: Nausea/Vomiting ED Provider: Korey Pichardo Dx/Rx/DC Orders Clinical Impression: Nausea & vomiting, Vasovagal syncope, Myoclonic jerking Instructions: ED Near-Fainting- Vagal Reaction, ED Vomiting (Adult) Prescriptions: New ondansetron 4 mg tablet,disintegrating 4 mg PO Q6H PRN (Reason: nausea and vomiting) Qty: 7 RF: 0 No Action multivitamin Tablet 1 tab PO DAILY RF: 0 Primary Care Provider: Delio Allen Referrals: Dario Bob MD [STAFF PHYSICIAN] - As soon as possible Delio Allen MD [Primary Care Provider] - Activity Restrictions/Additional Instructions: Plenty of fluids and rest. Increase activity as tolerated. Off work tomorrow. Zofran as needed for nausea which you may swallowed or let it dissolve underneath your tongue. Follow-up with a local primary care physician. I think this is secondary to vasovagal near syncope or syncope with myoclonic jerks. I do not think this was a true seizure today. Disposition Disposition: Home, Self Care
[2021-05-07] MEDS: 0.9% Normal Saline 1,000 ML 999 ML IV (16:29)
[2021-05-07 16:39] VITALS: O2SAT 80
[2021-05-07 16:40] VITALS: BP 113/84; PULSE 64; RESP 12; O2SAT 100; O2SAT 92
[2021-05-07 17:40] VITALS: BP 110/81; PULSE 102; RESP 18; TEMP 36.3; O2SAT 100
[2021-05-07] MEDS: Acetaminophen 500 MG Tablet 1000 MG PO (18:33)
== END 2021-05-07 19:42 | disposition home or self-care (01) ==
PROVIDERS: Emergency Provider Emergency Medicine; PCP Family Medicine
DX: R11.2 Nausea with vomiting, unspecified (principal); R55 Syncope and collapse; G25.3 Myoclonus
CPT/HCPCS: 70450; 80048; 85025; 93005; 96361; 96374; 96376; 99285; J7030; A4216; J2405

== ENCOUNTER → 2023-04-15 | Outpatient (CLI) | payer OTHER, SELFPAY ==
--- NOTE | 2023-04-15 11:50 | BI_ITS ---
MAMMOGRAPHY - BILATERAL SCREENING REASON FOR EXAM: Female, 37 years old. Routine annual screening examination. PERTINENT HISTORY: Non-contributory. TECHNIQUE: Digital bilateral breast taz (3D mammographic acquisition) in the CC and MLO projections. 2-D mediolateral oblique (MLO) and craniocaudad (CC) views of both breasts were obtained. CAD: Full Field Digital Mammography with Computer Added Detection was performed. COMPARISON: None. Baseline examination. FINDINGS: Breast Composition: The breasts are extremely dense, which lowers the sensitivity of mammography. There is a 1.1 cm x 1 cm well-defined nodule in the deep upper medial aspect of the left breast. Correlation with ultrasound is recommended. No other significant abnormalities are identified. BI/SCRN MAMM (CAD)W/TAZ BILAT IMPRESSION: 1.1 cm x 1 some well-defined nodule in the deep upper medial aspect of the left breast. Correlation with ultrasound is recommended. ASSESSMENT CATEGORY: BIRADS Category 0: Incomplete. Need additional imaging evaluation. A letter regarding these results will be sent to the patient by the facility within 30 days. Approximately 10% of breast cancers are not detected by mammography. A normal mammogram should not delay biopsy of a clinically suspicious abnormality. [id number] Electronically Signed: Michael Hernandez MD at 14:03 EDT ,
== END | disposition home or self-care (01) ==
LOC: OPBI 11:49
PROVIDERS: PCP Family Medicine; Referring Provider Nurse Practitioner Women's Health; Visit Provider Nurse Practitioner Women's Health
DX: Z12.31 Encounter for screening mammogram for malignant neoplasm of breast (principal)
CPT/HCPCS: 77063; 77067

== ENCOUNTER → 2023-04-17 | Outpatient (CLI) | payer OTHER, SELFPAY ==
--- NOTE | 2023-04-17 15:20 | US_ITS ---
STUDY: ULTRASOUND BREAST - LEFT REASON FOR EXAM: Female, 37 years old. Abnormal screening mammogram. TECHNIQUE: Axial and longitudinal images of the LEFT breast were performed with a high resolution ultrasound transducer. # OF IMAGES: 21 COMPARISON: Comparison is made with prior mammogram dated April 15, 2023. FINDINGS: LEFT Breast: The mammographic abnormality corresponds to a 1.1 cm x 1.1 cm x 0.8 cm cyst at the 11:00 position of the left breast at 1 cm from the nipple. US/Breast Limited Unilateral IMPRESSION: 1.1 cm x 1.1 cm x 0.8 cm cyst at 11:00 position of the breast at 1 cm from the nipple. ASSESSMENT CATEGORY: BIRADS Category 2: Benign. A letter regarding these results will be sent to the patient by the facility within 30 days. Electronically Signed: Michael Hernandez MD at 14:31 EDT ,
[2023-04-17 15:52] LABS: Absolute Lymphocyte Count 1.92 X10^3/uL (0.83-4.51); Absolute Neutrophil Count 6.2 X10^3/uL (2.0-7.7); Basophil# 0.04 X10^3/uL; Basophil% 0.4 % (0-1); Eosinophil# 0.35 X10^3/uL; Eosinophils% 3.8 % (0-5); Hematocrit 42.2 % (37-47); Hemoglobin 13.3 g/dL (12.0-15.0); Lymphocyte # 1.92 X10^3/ul (0.83-4.51); Lymphocyte % 20.8 % (19-41); Mean Corp Hgb Conc 31.5 g/dL (32-36); Mean Corpuscular Hgb 26.7 pg (27.0-32.0); Mean Corpuscular Volume 84.7 fL (81-99); Monocyte# 0.75 X10^3/uL; Monocyte% 8.1 % (0-10); NRBC Flagged by Analyzer 0 % (0-5); Neutrophil # 6.15 X10^3/uL (2.7-7.7); Neutrophil % 66.5 % (47-70); Platelet Count 269 K/mm3 (150-450); RBC Distribution Width CV 12.8 % (11.6-14.6); RBC Distribution Width SD 38.9 fl (35.1-43.9); Red Blood Count 4.98 M/mm3 (4.2-5.4); White Blood Count 9.3 K/mm3 (4.4-11.0)
[2023-04-17 16:17] LABS: Thyroid Stim Hormone (TSH) 1.41 uIU/mL (0.358-3.74)
== END | disposition home or self-care (01) ==
PROVIDERS: Obstetrics & Gynecology; PCP Family Medicine; Referring Provider Nurse Practitioner Women's Health; Visit Provider Nurse Practitioner Women's Health
DX: N93.9 Abnormal uterine and vaginal bleeding, unspecified (principal); R92.8 Other abnormal and inconclusive findings on diagnostic imaging of breast; N63.22 Unspecified lump in the left breast, upper inner quadrant
CPT/HCPCS: 36415; 76642; 84443; 85025

== ENCOUNTER → 2024-03-02 | Outpatient (CLI) | payer OTHER, SELFPAY ==
[2024-03-02 15:18] LABS: EXAGEN MAILED SPECIMEN
[2024-03-02 17:54] LABS: Absolute Lymphocyte Count 2.29 X10^3/uL (0.83-4.51); Absolute Neutrophil Count 3.5 X10^3/uL (2.0-7.7); Basophil# 0.04 X10^3/uL; Basophil% 0.6 % (0-1); Eosinophil# 0.31 X10^3/uL; Eosinophils% 4.8 % (0-5); Hematocrit 41.9 % (37-47); Hemoglobin 13.3 g/dL (12.0-15.0); Lymphocyte # 2.29 X10^3/ul (0.83-4.51); Lymphocyte % 35.2 % (19-41); Mean Corp Hgb Conc 31.7 g/dL (32-36); Mean Corpuscular Hgb 26.7 pg (27.0-32.0); Mean Corpuscular Volume 84.1 fL (81-99); Monocyte# 0.37 X10^3/uL; Monocyte% 5.7 % (0-10); NRBC Flagged by Analyzer 0 % (0-5); Neutrophil # 3.48 X10^3/uL (2.7-7.7); Neutrophil % 53.4 % (47-70); Platelet Count 215 K/mm3 (150-450); RBC Distribution Width CV 12.5 % (11.6-14.6); RBC Distribution Width SD 37.9 fl (35.1-43.9); Red Blood Count 4.98 M/mm3 (4.2-5.4); White Blood Count 6.5 K/mm3 (4.4-11.0)
[2024-03-02 18:24] LABS: Color, Urine Yellow (Yellow); Glucose, Dipstick Normal (Normal); Ketone-Dipstick 50 mg/dl (Negative); Leukocyte Esterase-Dipstick 500 /ul (Negative); Nitrite-Dipstick Negative (Negative); Occult Blood-Urine Negative /ul (Negative); Protein-Dipstick Negative (Negative); Urine Bilirubin Dipstick Negative (Negative); Urine Clarity Clear (Clear); Urine Urobilinogen Normal (Normal)
[2024-03-02 18:29] LABS: AST(SGOT) 15 U/L (15-37); Alanine Aminotransfer ALT/SGPT 16 U/L (13-56); Albumin, Serum 4.1 g/dL (3.2-5.0); Alkaline Phosphatase 52 U/L (45-117); Anion Gap 5 (5-15); BUN 13 mg/dL (7-18); BUN/Creat Ratio 15.6 RATIO (10-20); Calcium,Total 9.9 mg/dL (8.5-10.1); Chloride 104 mmol/L (98-107); Creatinine, Serum 0.84 mg/dL (0.55-1.02); EST Glomerular Filtration Rate 82 mL/min (>60); Est Glom Filt Rate - Afr Amer 99 mL/min (>60); Globulin 4.1 g/dL (2.2-4.2); Glucose 123 mg/dL (74-106); Potassium 3.4 mmol/L (3.5-5.1); Protein, Total 8.2 g/dL (6.4-8.2); Sodium Level 137 mmol/L (136-145)
[2024-03-02 18:53] LABS: Microalbumin,Random Urine 19.6 mg/L (NO RANGE EST.); Microalbumin:Creatinine Ratio 11.5 mg/g CRE (<30 mg/g CRE)
[2024-03-02 20:32] LABS: Hepatitis B Surface Antibody Reactive; Hepatitis B Surface Antigen Non-Reactive (Nonreactive); Hepatitis C Antibody Non-Reactive (Nonreactive)
[2024-03-03 14:29] LABS: Protein, Urine (Random) 16.5 mg/dL (<11.9); Protein:Creat Ratio 96 mg/g CRE (0-200)
== END | disposition home or self-care (01) ==
LOC: MTLAB 14:01
PROVIDERS: PCP Family Medicine; Referring Provider Internal Medicine Rheumatology; Visit Provider Internal Medicine Rheumatology
DX: R76.8 Other specified abnormal immunological findings in serum (principal); M06.4 Inflammatory polyarthropathy; R51.9 Headache, unspecified
CPT/HCPCS: 36415; 80053; 81002; 82043; 82570; 84156; 85025; 86706; 86803; 87340

== ENCOUNTER → 2025-05-06 | Outpatient (CLI) | payer OTHER, SELFPAY ==
[2025-05-11 15:08] LABS: HPV APTIMA, High Risk Negative (Negative)
== END | disposition home or self-care (01) ==
LOC: LABSPEC 17:13
PROVIDERS: Visit Provider Obstetrics & Gynecology
DX: Z12.4 Encounter for screening for malignant neoplasm of cervix (principal)
CPT/HCPCS: 87624; 88175; G0145

== ENCOUNTER → 2025-05-06 | Outpatient (CLI) | payer OTHER, SELFPAY ==
[2025-05-06 16:41] LABS: Hematocrit 42.3 % (37-47); Hemoglobin 13.3 g/dL (12.0-15.0); Immature Granulocytes Count 0.020 X10^3/uL (0.0-0.0); Mean Corp Hgb Conc 31.4 g/dL (32-36); Mean Corpuscular Volume 84.9 fL (81-99); Mean Platelet Vol. 12.0 fl (6.2-12.0); NRBC Flagged by Analyzer 0 % (0-5); Platelet Count 244 K/mm3 (150-450); RBC Distribution Width CV 12.7 % (11.6-14.6); RBC Distribution Width SD 38.9 fl (35.1-43.9); Red Blood Count 4.98 M/mm3 (4.2-5.4); White Blood Count 6.8 K/mm3 (4.4-11.0)
--- OUTSIDE RECORDS SUMMARY | 2025-05-06 19:11 | XMS RPT_ITS | CCD ---
Author Organization [facility] Care Team Providers Care Mh Teacher Name Role Phone Sivakumar Lazar MD Unavailable [phone] ANGELA Villafuerte RN, Avril Santos Unavailable Unavailabl e Breanne Jiménez MD Unavailable [phone] MAGDALENE MEEKS Unavailable Unavailable REFERRING, ANDRIY WO ID~[id number] Unavailable Unava ilable TINO BREANNE E Unavailable Unavailabl e DOC, MISC Unavailable Unavailable JORDANA, ROXY Unavailable Unavailable JORDANA, ROXY Unavailable Unavailable MARCANTHONY, BREANNE E Unavailable Unavailabl e DOC, MISC Unavailable Unavailable JORDANA, ROXY Unavailable Unavailable JORDANA, ROXY Unavailable Unavailable DOC, MISC Unavailable Unavailable ABRAHAM CAMILOINE Unavailable Unavailable MARCANTHONY, BREANNE E Unavailable Unavailabl e DOC, MISC Unavailable Unavailable JORDANA, ROXY Unavailable Unavailable MARCANTHONY, BREANNE E Unavailable Unavailabl e DOC, MISC Unavailable Unavailable JORDANA, ROXY Unavailable Unavailable MARCANTHONY, BREANNE E Unavailable Unavailabl e DOC, MISC Unavailable Unavailable KYLER SAM Unavailable Unavailable MARCANTHONY, BREANNE E Unavailable Unavailabl e DOC, MISC Unavailable Unavailable DOE REESE T Unavailable Unavailable MARCANTHONY, BREANNE E Unavailable Unavailabl e DOC, MISC Unavailable Unavailable Breanne Jiménez MD Unavailable [phone] Sivakumar Lazar MD Unavailable Dr. Delio Allen Referring Provider [phone] Breanne Jiménez Attending Provider TIFFANI Garzon Primary Care Provider GAGE BOYKIN Attending Unavailable GAGE BOYKIN Consulting Unavailable GAGE BOYKIN Primary Care Unavailable GAGE BOYKIN Admitting Unavailable PROVIDER, UNKNOWN Consulting Unavailable Breanne Jiménez Attending Unavailable Medications Current Medications Medication Drug Class(es) Dates Sig (Normalized) Sig (Original) Multivitamin preparation (2 sources) Start: 01-31-2021 take 1 tablet by mouth once daily Multivitamin Active 1 TABLET PO DAILY January 31, 2021 12:00am Completed/Discontinued Medications Medication Drug Class(es) Dates Sig (Normalized) Sig (Original) Dextromethorphan / guaiFENesin (2 sources) Uncompetitive K-jmqdbw-C-aspartat e Receptor Antagonist, Sigma-1 Agonist Start: 07-28-2015 End: 09-09-2017 Dextromethorphan- Guaifenesin Discontinued 10 ML PO NEEDED July 28, 2015 1:00am September 09, 2017 3:01pm NORGESTIMATE-ETH ESTRADIOL (4 sources) Progestin, Estrogen Start: 02-15-2017 take 1 tablet by mouth once daily SPRINTEC 28 0.25-35 MG-MCG TABS One tablet by mouth daily NORGESTIMATE-ETH ESTRADIOL [id number] Breanne Jiménez MD Start: 02-15-2017 SPRINTEC 28 0. 25-35 MG-MCG TABS NORGESTIMATE-ETH ESTRADIOL [id number] Neyda Magaña naproxen 250 mg oral tablet (2 sources) Nonsteroidal Anti-inflammatory Drug Start: 07-29-2015 End: 09-09-2017 take 250-500 mg by mouth every eight hours as needed Naproxen Discontinued 250 - 500 MG PO EVERY 8 HOURS NEEDED July 29, 2015 1:00am September 09, 2017 3:01pm norethindrone 0.35 mg oral tablet (2 sources) Start: 06-10-2018 End: 01-31-2021 take 1 tablet by mouth once daily Norethindrone (Contraceptive) (Gayatri-Be) 0.35 MG tablet Discontinued 1 MG PO DAILY June 10, 2018 1:00am January 31, 2021 1:26pm NORGESTIMATE-ETH ESTRADIOL (6 sources) Start: 02-15-2017 take 1 tablet by mouth once daily SPRINTEC 28 0.25-35 MG-MCG TABS One tablet by mouth daily NORGESTIMATE-ETH ESTRADIOL [id number] rBeanne Jiménez MD Start: 02-15-2017 SPRINTEC 28 0. 25-35 MG-MCG TABS NORGESTIMATE-ETH ESTRADIOL [id number] Neyda Magaña ondansetron 4 mg disintegrating oral tablet (2 sources) Serotonin-3 Receptor Antagonist Start: 05-07-2021 End: 04-15-2023 take 4 mg by mouth every six hours Ondansetron Discontinued 4 MG PO EVERY 6 HOURS May 07, 2021 1:00am April 15, 2023 2:51pm Vit,Nzjo75-Bjgi-Qtxee (2 sources) Start: 01-03-2014 End: 01-31-2021 take 1 tablet by mouth once daily Vit,Govk01-Srvc-An lic Discontinued 1 TABLET PO DAILY January 03, 2014 12:00am January 31, 2021 1:26pm Problems Problem Classification Problem Date Documented Date Episodic/Chronic Ectopic (2 sources) Ectopic ; Translations: [Unspecified ectopic without intrauterine ] 09-10-2017 Episodic Nausea and vomiting (2 sources) Nausea and vomiting; Translations: [Nausea with vomiting, unspecified] 05-15-2021 Episodic Other complications of ; puerperium affecting management of mother (2 sources) ultrasound ventriculomegaly; Translations: [Ventriculomegaly of brain on ultrasound] 06-10-2018 Episodic Other complications of (2 sources) Abnormal findings on screening of mother; Translations: [Unspecified abnormal findings on screening of mother] 06-10-2018 Episodic Other female genital disorders (2 sources) Abnormal uterine bleeding; Translations: [Abnormal uterine and vaginal bleeding, unspecified] 04-15-2023 Chronic Other female genital disorders (2 sources) Abnormal uterine and vaginal bleeding, unspecified; Translations: [Unspecified disorders of menstruation and other abnormal bleeding from female genital tract] 04-15-2023 Chronic Other hereditary and degenerative nervous system conditions (2 sources) Myoclonus; 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 Other non-traumatic joint disorders (1 source) Pain in unspecified joint; Translations: [Pain in unspecified joint] Onset: 11-28-2023 Episodic Other and delivery including normal (6 sources) ; Translations: [Encounter for supervision of normal , unspecified, unspecified trimester] 06-10-2018 Episodic Other screening for suspected conditions (not mental disorders or infectious disease) (2 sources) Mammography abnormal; Translations: [Other abnormal and inconclusive findings on diagnostic imaging of breast] 04-15-2023 Episodic Syncope (2 sources) Vasovagal syncope; Translations: [Syncope and collapse] 05-15-2021 Episodic Thyroid disorders (7 sources) Multinodular goiter; Translations: [Goiter] Onset: 02-15-2017 03-05-2017 Chronic Unclassified (9 sources) Gynecologic examination ; Translations: [Encounter for gynecological examination (general) (routine) without abnormal findings] Onset: 02-15-2017 Resolved: 02-15-2017 02-15-2017 Results Test Name Value Interpretation Reference Range Facility MARVIN BY IFA SCREEN [CCL]on MARVIN Titer 1:160 Normal [facility] [place] [facility] Comment on above: Performed By: #### 2 [id number] #### [place] [address] Nuclear Ab IF (S) [Titer] Positive Abnormal Negative [facility] [place] [facility] Comment on above: Result Comment: Anti -nuclear antibody test is used as an aid in diagnosis of systemic autoimmune diseases. Where positive and clinically warranted, follow-up using disease-specific testing is recommended. Low positive titers are not uncommon with advanced age, certain chronic infections, and malignancies among others. Test methodology: Indirect fluorescence immunoassay (IFA) using HEp-2 cells. Performed By: #### 2 [id number] #### [place] [id number] RHEUMATOID FACTOR [CCL]on Rheumatoid Factor <10 Normal <16 [facility] Comment on above: Result Comment: [address] [address] Richard August III, M.D. [id number] Performed By: #### 2 01098 #### [place] [id number] MARVIN BY IFA SCREENon 11-28-19 24 Nuclear Ab pattern (S) [Interp] Cytoplasmic dense fine speckled Normal [facility] Comment on above: Order Comment: Sonal balderas Type: BLOOD SPECIMEN Ordering Facility: [facility] Address: [address] [place] [address] Performed By: #### A MISTYS, 03512-0 #### [facility] CLIA [id number] [address] [place] [address] STATES [facility] Nuclear Ab Ql (S) Positive Abnormal Negative [facility] Comment on above: Order Comment: Specjc balderas Type: BLOOD SPECIMEN Ordering Facility: [facility] Address: [address] [place] [address] Result Comment: Anti -nuclear antibody test is used as an aid in diagnosis of systemic autoimmune diseases. Where positive and clinically warranted, follow-up using disease-specific testing is recommended. Low positive titers are not uncommon with advanced age, certain chronic infections, and malignancies among others. Test methodology: Indirect fluorescence immunoassay (IFA) using HEp-2 cells. 1:160 Performed By: #### A JEANNE, 94579-8 #### [facility] CLIA [id number] [address] [place] [address] STATES OF [facility] C-REACTIVE PROTEINon 024 CRP 0.30 mg/dl Normal 0.00 - 0.90 [facility] [place] [facility] Comment on above: Performed By: #### 2 94984 #### [facility] [place] [facility],[address] [place], [place] [id number] Rheumatoid fact SerPl-aCncon 11-28-2023 Rheumatoid factor Qn [IU]/mL Normal <16 [facility] Comment on above: Order Comment: Sonal balderas Type: BLOOD SPECIMEN Ordering Facility: [facility] Address: [address] [place] [address] Performed By: #### A NAIFS, 28560-6 #### [facility] CLIA [id number] [address] [place] [address] OF [facility] SEDRATEon 11-28-2023 SEDRATE 14 mm/hr Normal 0 - 30 [facility] [place] [facility] Comment on above: Performed By: #### 2 61388 #### [facility] [place] [facility],[address] [place] [address] URIC ACIDon 11-28-2023 Urate [Mass/Vol] 2.9 mg/dL Normal 2.6 - 6.0 [facility] [place] [facility] Comment on above: Performed By: #### 2 71743 #### [facility] [place] [facility],[address] [place] [address] Absolute lymphocyte countOrd ered By: Breanne Jiménez on 04-17-2023 Lymphocytes Auto (Unsp spec) [#/Vol] 1.92 10*3/uL 0.83-4.51 [facility] Basophil percentageOrdered B y: Breanne Jiménez on 04-17-2023 Basophils/100 WBC (Bld) 0.4 % 0-1 [facility] Eosinophils/100 WBC (Bld) 3.8 % 0-5 [facility] Neutrophils (Bld) [#/Vol] 6.2 10*3/uL 2.0-7.7 [facility] Neutrophils/100 WBC (Bld) 66.5 % 47-70 [facility] WBC (Bld) [#/Vol] 9.3 10*3/uL 4.4-11.[address] [facility] Blood erythrocytes count (nu mber/volume)Ordered By: Breanne Jiménez on 04-17-2023 RBC (Bld) [#/Vol] 4.98 10*6/uL 4.2-5.4 [facility] Blood hemoglobin measurement (mass/volume)Ordered By: Breanne Jiménez on 04-17-2023 Hemoglobin (Bld) [Mass/Vol] 13.3 g/dL 12.0-15.0 [facility] Blood lymphocytes/100 leukoc ytesOrdered By: Breanne Jiménez on 04-17-2023 Lymphocytes/100 WBC (Bld) 20.8 % 19-41 [facility] Blood monocytes/100 leukocyt esOrdered By: Breanne Jiménez on 04-17-2023 Monocytes/100 WBC (Bld) 8.1 % 0-10 [facility] Blood platelet mean volumeOr dered By: Breanne Jiménez on 04-17-2023 Platelet mean volume (Bld) [Entitic vol] 11.0 fL 6.2-12.0 [facility] Determination of erythrocyte mean corpuscular volume (MCV)Ordered By: Breanne Jiménez on 04-17-2023 MCV (RBC) [Entitic vol] 84.7 fL 81-99 [facility] Hematocrit Auto (Bld) [Volum e fraction]Ordered By: Breanne Jiménez on 04-17-2023 Hematocrit (Bld) [Volume fraction] 42.2 % 37-47 [facility] Laboratory - Hematology and Cell countsOrdered By: Breanne Jiménez on 04-17-2023 Erythrocyte distribution width (RBC) [Entitic vol] 38.9 fL 35.1-43.9 [facility] Erythrocyte distribution width (RBC) [Ratio] 12.8 % 11.6-14.6 [facility] Immature granulocytes/100 WBC (Bld) 0.400 % 0.0-0.9 [facility] Comment on above: IG% - Immature Granu locytes (promyelocytes, myelocytes and metamyelocytes) > 1% indicates that a LEFT SHIFT is Present. MCH (RBC) [Entitic mass] 26.7 pg 27.0-32.0 [facility] Nucleated RBC/100 WBC (Bld) [Ratio] 0 % 0-5 [facility] MCHC Auto (RBC) [Mass/Vol]Or dered By: Breanne Jiménez on 04-17-2023 MCHC (RBC) [Mass/Vol] 31.5 g/dL 32-36 [facility] No Panel InformationOrdered By: Breanne Jiménez on 04-17-2023 Thyroid Stimulating Hormone (TSH) 1.41 uIU/mL 0.358-3.74 [facility] Platelets bldOrdered By: Fadi Jiménez on 04-17-2023 Platelets (Bld) [#/Vol] 269 10*3/uL 150-450 [facility] Free T3on 05-17-2021 Free T3 [Mass/Vol] 4.0 pg/mL Normal 2.3-4.1 [facility] Comment on above: Performed By: #### T TER[address] FRE[address]3 #### [facility] Routine Lab [address] [place], [place] [address] Thyroglobulin Abon 1 Thyroglobulin Ab Qn 1.4 [IU]/mL Normal <14.4 [facility] Comment on above: Performed By: #### T [address] FRE[address]3 #### [facility] Routine Lab [address], [place] [id number] Toxoplasma IGG AND IGM (Pren atal Screen)on 03-24-2018 Toxoplasma IgG (Dye Test) <1:16 Normal <1:16 NEGATIVE [facility] Comment on above: Performed By: #### T SLPN ####[address] [phone] Toxoplasma IgM AIDEN 0.0 Normal [facility] Comment on above: Result Comment: 0.0- 1.6 = Negative1.7-1.9 = Equivocal>= 2.0 = PositiveTesting Performed:[facility], [address] [phone] Performed By: #### T SLPN ####[address] [phone] CMV IgG Abon 03-20-2018 CMV IgG Ab 0.10 ISR Normal 0.00-0.80 [facility] Comment on above: Result Comment: Nega tive: < 0.80 ISREquivocal: 0.80-0.99 ISRPositive: > 0.99 ISR Performed By: #### C MVIG ####[address] [phone] CMV IgM Abon 03-20-2018 CMV IgM Ab 0.50 ISR Normal 0.00-0.90 [facility] Comment on above: Result Comment: Nega tive: < 0.90 ISREquivocal: 0.90-1.09 ISRPositive: > 1.09 ISR Performed By: #### C MVIM ####[facility] [place], [place] [phone] Progress Noteon 03-17-2018 Freight Loading Supervisor Authentication Interface Message Text Met with patient and her Radha for new finding of ventriculomegaly on growth ultrasound Prior renaldilation resolved Information on FTC services given.Consent to share information with FTC team, OB and sociology research assistant signed. Pt plans to deliver at [place] with Dr. Jiménez.Pediatri yolanda is Dr Irene. Male fetus- name is CadenMethod of feeding: breastUltrasound findings today: See report in procedures for details.Pt will follow up in 1 month for reevaluation of growth and CNSReinforced continued OB care with Dr. JiménezThe total patient time of the visit was 5 minutes, of which greater than 50% ofthe time was spent counseling and coordinating care. Normal [facility] Fre[employer] Loading Supervisor Authentication Interface Message Text The total patient time of the visit was 30 minutes, of which greater than 50% of the time was spent counseling and coordinating care. Normal [facility] .Auto Diffon 03-31-2017 Basophils Auto #/vol (Bld) 0.00 10 3/mcL Normal 0.00-0.19 [facility] ([place]) Comment on above: Performed By: #### C BC, ADIFF, ANEU, GFR, BMP ####[address] [place], [place] [address] Basophils/100 WBC Auto (Bld) 0.6 % Normal 0.0-2.5 [facility] ([place]) Comment on above: Performed By: #### C BC, ADIFF, ANEU, GFR, BMP ####[address] [place], [place] [address] Eosinophils 0.40 10 3/mcL Normal 0.00-0.40 [facility] ([place]) Comment on above: Performed By: #### C BC, ADIFF, ANEU, GFR, BMP ####[address] [place], [place] [address] Eosinophils/100 leukocytes 5.9 % Normal 0.0-7.0 [facility] ([place] Comment on above: Performed By: #### C BC, ADIFF, ANEU, GFR, BMP ####[address] [place], [place] [address] Lymphocytes 3.00 10 3/mcL Normal 0.77-3.85 [facility] ([place]) Comment on above: Performed By: #### C BC, ADIFF, ANEU, GFR, BMP ####[address] [place], [place] [address] Lymphocytes/100 leukocytes 45.5 % Normal 10.0-50.0 [facility] ([place] Comment on above: Performed By: #### C BC, ADIFF, ANEU, GFR, BMP ####[address] [place], [place] [address] Monocytes 0.40 10 3/mcL Normal 0.15-1.00 [facility] ([place]) Comment on above: Performed By: #### C BC, ADIFF, ANEU, GFR, BMP ####[address] [place], [place] [address] Monocytes/100 leukocytes 5.8 % Normal 1.7-13.0 [facility] ([place] Comment on above: Performed By: #### C BC, ADIFF, ANEU, GFR, BMP ####[address] [place], [place] [address] Neutrophils/100 WBC Auto (Bld) 42.2 % Normal 37.0-80.0 [facility] ([place] Comment on above: Performed By: #### C BC, ADIFF, ANEU, GFR, BMP ####[address] [place], [place] [address] .GFRon 03-31-2017 eGFR (non-black) mL/min/{1.73_m2} Normal [facility] ([place]) Comment on above: Result Comment: GFR Population mean for , Non- Americans Ages 20-29 = 116 mL/min/1.73 sq.m. Ages 30-39 = 107 mL/min/1.73 sq.m. Ages 40-49 = 99 mL/min/1.73 sq.m. Ages 50-59 = 93 mL/min/1.73 sq.m. Ages 60-69 = 85 mL/min/1.73 sq.m. Ages 70+ = 75 mL/min/1.73 sq.m.Chronic Kidney Disease: Less than 60 mL/min/1.73 square metersEnd Stage Renal Disease: Less than 15 mL/min/1.73 square meters Performed By: #### C BC, ADIFF, ANEU, GFR, BMP ####[address] [place], [place] [address] eGFR (non-black) 92 ml/min/1.73sqm Normal [facility] ([place]) Comment on above: Result Comment: GFR Population mean for , Non- Americans Ages 20-29 = 116 mL/min/1.73 sq.m. Ages 30-39 = 107 mL/min/1.73 sq.m. Ages 40-49 = 99 mL/min/1.73 sq.m. Ages 50-59 = 93 mL/min/1.73 sq.m. Ages 60-69 = 85 mL/min/1.73 sq.m. Ages 70+ = 75 mL/min/1.73 sq.m.Chronic Kidney Disease: Less than 60 mL/min/1.73 square metersEnd Stage Renal Disease: Less than 15 mL/min/1.73 square meters Performed By: #### C BC, ADIFF, ANEU, GFR, BMP ####[address] [place], [place] [address] .NEUABSon 03-31-2017 Neutrophils 2.80 10 3/mcL Low 2.85-6.16 [facility] ([place]) Comment on above: Performed By: #### C BC, ADIFF, ANEU, GFR, BMP ####[address] [place], [place] [address] .Urinalysis Microscopic (AO) on 03-31-2017 UA Squam Epithelial None Seen Normal None Seen [facility] ([place]) Comment on above: Performed By: #### U A, PREGU, UAMICAO ####[address] [place], [place] [address] UA WBC None Seen Normal None Seen [facility] ([place] Comment on above: Performed By: #### U A, PREGU, UAMICAO ####[address] [place], [place] [address] Urine, erythrocytes None Seen Normal None Seen [facility] ([place] Comment on above: Performed By: #### U A, PREGU, UAMICAO ####[address] [place], [place] [address] BMPon 03-31-2017 Glucose mass conc 91 mg/dL Normal 70-105 [facility] ([place] Comment on above: Performed By: #### C BC, ADIFF, ANEU, GFR, BMP ####[address] [place] [address] BUN/Creatinine Ratio 10 ratio Normal 7-27 [facility] ([place]) Comment on above: Performed By: #### C BC, ADIFF, ANEU, GFR, BMP ####[address] [place], [place] [address] Calcium 8.9 mg/dL Normal 8.4-10.2 [facility] ([place]) Comment on above: Performed By: #### C BC, ADIFF, ANEU, GFR, BMP ####[address] [place], [place] [address] CO2 24 mmol/L Normal 22-29 [facility] ([place] Comment on above: Performed By: #### C BC, ADIFF, ANEU, GFR, BMP ####[address] [place], [place] [address] Creatinine 0.9 mg/dL Normal 0.6-1.2 [facility] ([place] Comment on above: Performed By: #### C BC, ADIFF, ANEU, GFR, BMP ####[address] [place], [place] [address] Electrolyte Balance 9.0 mEq/L Normal [facility] ([place]) Comment on above: Performed By: #### C BC, ADIFF, ANEU, GFR, BMP ####[address] [place], [place] [address] Chloride 106 mmol/L Normal 98-107 [facility] ([place] Comment on above: Performed By: #### C BC, ADIFF, ANEU, GFR, BMP ####[address] [place], [place] [address] Potassium molar conc 3.5 mmol/L Normal 3.5-5.1 [facility] ([place]) Comment on above: Performed By: #### C BC, ADIFF, ANEU, GFR, BMP ####[address] [place], [place] [address] Sodium 139 mmol/L Normal 136-146 [facility] ([place] Comment on above: Performed By: #### C BC, ADIFF, ANEU, GFR, BMP ####[address] [place], [place] [address] Urea nitrogen 8.7 mg/dL Normal 7.0-18.0 [facility] ([place]) Comment on above: Performed By: #### C BC, ADIFF, ANEU, GFR, BMP ####[address] [place], [place] [address] CBCon 03-31-2017 Erythrocyte distribution width Auto Ratio (RBC) 14.2 % Normal 11.5-14.5 [facility] ([place] Comment on above: Performed By: #### C BC, ADIFF, ANEU, GFR, BMP ####[address] [place], [place] [address] Erythrocytes (RBC) 4.96 10 6/mcL Normal 4.20-5.40 Counts include 234 beds at the [facility] ([place]) Comment on above: Performed By: #### C BC, ADIFF, ANEU, GFR, BMP ####[address] [place], [place] [address] Hematocrit (HCT) 39.2 % Normal 37.0-47.0 [facility] ([place] Comment on above: Performed By: #### C BC, ADIFF, ANEU, GFR, BMP ####[address] [place], [place] [address] Hemoglobin mass conc (Bld) 12.9 G/dL Normal 12.0-16.0 [facility] ([place] Comment on above: Performed By: #### C BC, ADIFF, ANEU, GFR, BMP ####[address] [place], [place] [address] MCH 26.1 pg Low 27.0-31.2 [facility] ([place] Comment on above: Performed By: #### C BC, ADIFF, ANEU, GFR, BMP ####[address] [place], [place] [address] MCHC mass conc (RBC) 33.0 G/dL Normal 33.0-37.0 [facility] ([place] Comment on above: Performed By: #### C BC, ADIFF, ANEU, GFR, BMP ####[address] [place], [place] [address] MCV 79.1 fL Low 80.0-94.0 [facility] ([place] Comment on above: Performed By: #### C BC, ADIFF, ANEU, GFR, BMP ####[address] [place], [place] [address] Platelet mean volume (PMV) 10.2 fL Normal 7.4-10.4 [facility] ([place] Comment on above: Performed By: #### C BC, ADIFF, ANEU, GFR, BMP ####[address] [place], [place] [address] Platelets 193 10 3/mcL Normal 130-400 [facility] ([place]) Comment on above: Performed By: #### C BC, ADIFF, ANEU, GFR, BMP ####[address] [place], [place] [address] WBC (Leukocytes) 6.50 10 3/mcL Normal 4.60-10.80 [facility] ([place]) Comment on above: Performed By: #### C BC, ADIFF, ANEU, GFR, BMP ####[address] [place], [place] [address] CT HEAD OR BRAIN W/O CONTRAS Ton 03-31-2017 CT HEAD OR BRAIN W/O CONTRAST ORIGINALCT HEAD OR BRAIN W/O CONTRAST Clinical Statement: pain; trauma patient;syncopal episode today, fell and hit head. light-headed, nauseous. pt states she has had multiple syncopal episodes over the last 8-10 years TECHNIQUE: Axial CT images from skull base to vertex without IV contrast. This exam was performed according to our departmental dose optimization program, and includes the following measures where applicable: automated exposure control, adjustment of the mAs and/or kVp according to patient size and/or exam, and an iterative reconstruction algorithm. COMPARISON: None. FINDINGS: There is no intracranial hemorrhage, mass, mass effect or abnormal extra-axial fluid collection. No CT evidence for acute infarction. The density in the larger dural venous sinuses is grossly normal. The ventricles are normal. The skull base and calvarium demonstrate no abnormality. The included paranasal sinuses and mastoid air cells are predominantly clear. IMPRESSION: No acute intracranial abnormality. I have personally reviewed the images of this examination and agree with the resident's findings and interpretation. Interpreted By: Judah Vargas DOPreliminary Report By: Sailaja Villa MDElectronically Signed By: Judah Vargas DO Dictated Date: 03/31/2017 12:06:06 AM Prelim Date: 03/31/2017 12:07:55 AM Sign Date: 03/31/2017 12:26:47 AM Normal [facility] ([place]) [facility] Emergency Room Note on 03-31-2017 [facility] Emergency Room Note Normal [facility] ([place] PREGUon 03-31-2017 HCG ( test) Ql (U) Negative Normal [facility] ([place] Comment on above: Performed By: #### U A, PREGU, UAMICAO ####[address] [place], [place] [address] test (u) int HCG not detected. Invalid Interpretation Code [facility] ([place]) Comment on above: Performed By: #### U A, PREGU, UAMICAO ####[address] [place], [place] [address] Patient Summary Documentson 03-31-2017 Patient Summary Documents Normal [facility] ([place] UAon 03-31-2017 UA Appear Clear Normal Clear [facility] ([place] Comment on above: Performed By: #### U A, PREGU, UAMICAO ####[address] [place], [place] [address] UA Blood Trace-Intact Abnormal Negative [facility] ([place]) Comment on above: Performed By: #### U A, PREGU, UAMICAO ####[address] [place] [address] UA Leuk Est Negative Normal Negative [facility] ([place]) Comment on above: Performed By: #### U A, PREGU, UAMICAO ####[address] [place] [address] UA Nitrite Negative Normal Negative [facility] ([place] Comment on above: Performed By: #### U A, PREGU, UAMICAO ####[address] [place] [address] UA pH 7.0 [facility] ([place]) Comment on above: Performed By: #### U A, PREGU, UAMICAO ####[address] [place] [address] UA Protein Negative Normal Negative [facility] ([place] Comment on above: Performed By: #### U A, PREGU, UAMICAO ####[address] [place] [address] UA Spec Grav 1.020 Normal [facility] ([place] Comment on above: Performed By: #### U A, PREGU, UAMICAO ####[address] [place] [address] UA Specimen Type Clean Catch [facility] ([place] Comment on above: Performed By: #### U A, PREGU, UAMICAO ####[address] [place] [address] UA Urobilinogen 0.2 E.U./dL [facility] ([place]) Comment on above: Performed By: #### U A, PREGU, UAMICAO ####[address] [place] [address] Urine, color Yellow Normal [facility] ([place]) Comment on above: Performed By: #### U A, PREGU, UAMICAO ####[address] [place], [place] [address] Urine, glucose Negative Normal Negative [facility] ([place]) Comment on above: Performed By: #### U A, PREGU, UAMICAO ####[address] [place], [place] [address] Urine, ketones presence Negative Normal Negative [facility] ([place]) Comment on above: Performed By: #### U A, PREGU, UAMICAO ####[address] [place], [place] [address] Urine, urobilinogen Negative Normal Negative [facility] ([place]) Comment on above: Performed By: #### U A, PREGU, UAMICAO ####[address] [place], [place] [address] Office Visit: Thyroid Nodule on 03-04-2017 Documentation of current medications (procedure) Done Invalid Interpretation Code [facility] Work Phone: Fall risk assessment No Invalid Interpretation Code [facility] Work Phone: Protein mass conc [facility] Work [facility]: Tobacco smoking status NHIS Never Invalid Interpretation Code [facility] Work Phone: Tobacco smoking status NHIS Never smoker [facility] Work Phone: Tobacco use [facility] Never smoker Invalid Interpretation Code [facility] Work Phone: Lab Report: Thyroid Stim Hor gracie (TSH)on 02-21-2017 Thyroid stimulating hormone (TSH) 1.03 u[iU]/mL Invalid Interpretation Code 0.358-3.74 [facility] Work Phone: Office Visit: est annualon 0 02-15-2017 Documentation of current medications (procedure) Done Invalid Interpretation Code [facility] Fall risk assessment No Invalid Interpretation Code [facility] Hemoglobin presence in stool not done Invalid Interpretation Code [facility] Protein mass conc Done [facility] Tobacco smoking status NHIS Never Invalid Interpretation Code [facility] Tobacco smoking status NHIS Never smoker [facility] Tobacco use [facility] Never smoker Invalid Interpretation Code [facility] Office Visit: est annualon 0 12-16-2014 General categories [Interpretation] of Cervical or vaginal smear or scraping by Cyto stain Normal Invalid Interpretation Code [facility] Vital Signs Date Time Vital Sign Value Performing Clinician Carlos Enrique kunz 04-15-2023 14:51-0400 Body height 160.[address] Delio Allen Work Phone: [facility] 04-15-2023 14:51-0400 Body mass index (BMI) [Ratio] 26.4 kg/m2 Dr. Delio Allen Work Phone: [facility] 04-15-2023 14:51-0400 Body weight 67.[address] Delio Allen Work Phone: [facility] 04-15-2023 14:51-0400 Diastolic blood pressure 96 mm[Hg] Dr. Delio Allen Work Phone: [facility] 04-15-2023 14:51-0400 Systolic blood pressure 139 mm[Hg] Dr. Delio Allen Work Phone: [facility] 03-04-2017 13:32-0400 BMI (Body Mass Index) 25.15 kg/m2 Sivakumar Lazar MD [facility] Work Phone: 03-04-2017 13:32-0400 Body Temperature 98.1 [degF] Sivakumar Lazar MD [facility] Work Phone: 03-04-2017 13:32-0400 BP Diastolic 83 mm[Hg] Sivakumar Lazar MD [facility] Work Phone: 03-04-2017 13:32-0400 BP Systolic 120 mm[Hg] Sivakumar Lazar MD [facility] Work Phone: 03-04-2017 13:32-0400 Height 160.02 cm Sivakumar Lazar MD [facility] Work Phone: 03-04-2017 13:32-0400 Pulse (Heart Rate) 63 /min Sivakumar Lazar MD [facility] Work Phone: 03-04-2017 13:32-0400 Weight 64.41 kg Sivakumar Lazar MD [facility] Work Phone: 02-15-2017 16:11-0400 BMI (Body Mass Index) 25.22 kg/m2 Breanne Jiménez MD [facility] 02-15-2017 16:11-0400 Body Temperature 97.5 [degF] Breanne Jiménez MD [facility] 02-15-2017 16:11-0400 BP Diastolic 88 mm[Hg] Breanne Jiménez MD [facility] 02-15-2017 16:11-0400 BP Systolic 128 mm[Hg] Breanne Jiménez MD [facility] 02-15-2017 16:11-0400 Height 160.02 cm Breanne Jiménez MD [facility] 02-15-2017 16:11-0400 Pulse (Heart Rate) 68 /min Breanne Jiménez MD [facility] 02-15-2017 16:11-0400 Respiratory Rate 16 /min Breanne Jiménez MD [facility] 02-15-2017 16:11-0400 Weight 64.59 kg Breanne Jiménez MD [facility] Encounters Encounter Date Encounter Type Care Provider Facility Start: 05-06-2025 ambulatory Breanne Monaco lity:[facility] Start: 11-28-2023 End: 11-28-2023 ambulatory [facility] Start: 04-17-2023 End: 04-17-[address] Delio Allen Work Phone: [facility] Work Phone: Start: 04-17-2023 End: 04-17-[address] Delio Allen Work Phone: [facility] Work Phone: Start: 04-15-2023 End: 04-15-[address] Delio Allen Work Phone: [facility] Work Phone: Start: 04-15-2023 End: 04-15-[address] Delio Allen Work Phone: [facility] Work Phone: Start: 04-15-2023 End: 04-15-[address] Delio Allen Work Phone: [facility] Work Phone: Start: 04-24-2018 End: 04-24-2018 Patient encounter DOE Gonzalez MARY ANN [facility] Start: 04-17-2018 End: 04-17-2018 Patient encounter KYLER SAM [facility] Start: 04-10-2018 Patient encounter [facility] Start: 04-03-2018 End: 04-03-2018 Patient encounter [facility] Start: 03-27-2018 End: 03-27-2018 Patient encounter ASHLI CAMILO [facility] Start: 03-17-2018 End: 03-18-2018 Patient encounter [facility] Start: 03-17-2018 End: 03-17-2018 Patient encounter BREANNE JIMÉNEZ [facility] Start: 03-31-2017 End: 03-31-2017 Emergency department patient visit MAGDALENE Patti MEEKS Facility:B Procedures Date Procedure Procedure Detail Performing Clinician Start: 04-17-[address] Delio Allen Work Phone: Start: 04-15-2023 Screening mammography Misael Allen Work Phone: Start: 02-15-2017 End: 02-15-2017 Gynecologic examination Varnish Mixer annual exam Breanne milner MD Start: 02-15-2017 End: 02-22-2017 Thyroid stimulating hormone (TSH) Breanne Jiménez MD Work Phone: Plan of Treatment Date Care Activity Detail Author Start: 02-15-2017 End: 02-15-2017 Appointment Appointment [facility] Start: 02-15-2017 End: 02-22-2017 Thyroid stimulating hormone (TSH) *TSH [facility] Start: 02-15-2017 End: 02-15-2017 Us exam of head and neck US Thyroid (Soft tissue neck) [facility] Immunizations Immunization Date Immunization Notes Care Provider [place] 04-01-[address] Delio Allen Work Phone: [facility] 02-25-2018 tetanus toxoid, redu harsha diphtheria toxoid, and acellular pertussis vaccine, adsorbed Dr. Deloi Allen Work Phone: [facility] Payers Date Payer Category Payer Self-pay [id number] 2025 Unknown [id number] 2017 Unknown [id number] 1987 Unknown [id number] 2.16.8 [id number] 1987 Unknown [id number] 2.16.8 [id number] 1987 Unknown [id number] 2.16.8 [id number] 1987 Unknown [id number] 2.16.8 [id number] 1987 Unknown [id number] 2.16.8 [id number] 1987 Unknown [id number] 2.16.8 [id number] 1987 Unknown [id number] 2.16.8 [id number] 1987 Unknown [id number] 2.16.8 [id number] 1987 Unknown [id number] 2.16.8 [id number] Unknown [facility] [id number] Unknown [id number] 2.16.8 [id number] Social History Date Type Detail Facility Start: 04-15-2023 Tobacco smoking stat us NJIS Unknown if ever smoked [facility] Start: 04-30-2018 None [facility] Start: 1985 Sex Assigned At Female [facility] Evaluation note Note Date & Type Note Facility Evaluation note Diagnosis Onset Date Abnormal uterine bleeding ac iqugmiut Encounter for routine gyneco logical examination noneactive [facility] Work Phone: Summary Purpose Family History No Family History Records FoundNo Family History Records FoundNo Family History Records FoundNo Family History Records FoundNo Family History Records FoundNo Family History Records Found Advance Directives No Advanced Directives Records Found Advance Directive Response Recorded Date/ Time Advance Directives No September 30 4:06pm Living Will Yes May 07 4:40pm Power of Slag Expander Yes May 07, 2021 4:40pm Chief Complaint and Reason for Visit 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) Other abnormal and inconclusive findings on diagno Reason for Visit Abnormal uterine ble eding Encounter for routine gynecological examination Additional Source Comments INFORMATION SOURCE (unrecogn ized section and content) DATE CREATED AUTHOR 12/17/2017 [facility] ([place]) DATE CREATED AUTHOR AUTHOR'S ORGANIZ ATION 05/15/2018 [facility] DATE CREATED AUTHOR AUTHOR'S ORGANIZ ATION 05/18/2021 [facility] DATE CREATED AUTHOR AUTHOR'S ORGANIZ ATION 11/29/2023 [facility] DATE CREATED AUTHOR AUTHOR'S ORGANIZ ATION 11/30/2023 [facility] DATE CREATED AUTHOR AUTHOR'S ORGANIZ ATION 05/05/2025 [facility] Care Teams (unrecognized sec tion and content) Team Status: Active Member Role Status Dates Dr. Delio Allen MD Family Provider Active Gage HARDING PA-C Primary Care Provider Active Team Status: Inactive Member Role Status Dates Dr. Delio Allen MD Referring Provider Active Dr. 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 Breanne Jiménez MD Other Provider Active Team Status: Inactive Member Role Status Dates [facility] MEAGHAN HARDING-C Primary Care Provider Active Carole French NP, NP-C Attending Provider, Referring Provider Active Dr. Breanne Jiménez MD Other Provider Active Goals (unrecognized section and content) Goals may be documented in a n alternate sectionGoals may be documented in an alternate section FOR RECORDS PERTAINING TO PATIENTS WHO ARE OR HAVE BEEN ENROLLED IN A CHEMICAL DEPENDENCY/SUBSTANCEABUSE PROGRAM, SOME INFORMATION MAY BE OMITTED. This clinical summary was aggregated from multiple sources. Caution should be exercised in using it in the provision of clinical care. This summary normalizes information from multiple sources, and as a consequence, information in this document may materially change the coding, format and clinical context of patient data. In addition, data may be omitted in some cases. CLINICAL DECISIONS SHOULD BE BASED ON THE PRIMARY CLINICAL RECORDS. [employer] [facility]. provides no warranty or guarantee of the accuracy or completeness of information in this document.
== END | disposition home or self-care (01) ==
PROVIDERS: Visit Provider Obstetrics & Gynecology
DX: N93.9 Abnormal uterine and vaginal bleeding, unspecified (principal)
CPT/HCPCS: 36415; 84443; 85025